=== PATIENT | female | born 1975 | race Caucasian/White ===

== ENCOUNTER → 2020-01-20 13:35 | Outpatient (CLI) | payer OTHER, SELFPAY ==
[2020-01-21 16:22] LABS: COVID19 Sendout Not Detected (Not Detect)
== END ==
PROVIDERS: PCP Family Medicine; Visit Provider Physician Assistant
DX: Z11.59 Encounter for screening for other viral diseases (principal)
CPT/HCPCS: 87635

== ENCOUNTER 2020-01-23 12:41 | Day surgery (SDC) | payer OTHER, SELFPAY ==
[2020-01-23] VITALS (7 sets, daily range): BP systolic 108–116; BP diastolic 59–71; PULSE 71–90; RESP 8–18; TEMP 36.5–36.6; O2SAT 98–100; BMI 20.9
[2020-01-23] MEDS: SODIUM CHLORIDE 0.9% 1,000 ML 200 ML IV (13:29)
--- NOTE | 2020-01-23 13:38 | PM.HP.1 ---
History of Present Illness History of Present Illness Date Patient Seen: 01/23/20 Time Patient Seen: 13:39 Chief complaint: SDC Narrative: This is a 44-year-old woman with history of 1 year rectal bleeding. She has intermittent episodes of constipation. She in the past has had fissures, although she is not having any rectal pain now. She has never had a colonoscopy. She denies any personal or family history of colon polyps or colon cancers. ROS: Positive for itching, blood in the stool, palpitations, anxiety, Thirteen system review is otherwise negative other than as mentioned below and in HPI. PE: GENERAL: Well groomed and cooperative. Appears stated age. Answers questions promptly and appropriately. Vital signs noted. HENT: Normocephalic, atraumatic. Hearing intact. EYES: Conjunctiva pink, sclera white, no periorbital swelling. CARDIOVASCULAR: Regular rate. No pedal edema. RESPIRATORY: Non-tachypneic, breathing comfortably on room air. GASTROINTESTINAL: Abdomen soft and non-distended GENITALURINARY: No flank tenderness. MUSCULOSKELETAL: Equal tone and mass bilaterally. SKIN: Warm, dry, soft, appropriate color for ethnicity. No other lesions, rashes, or wounds. NEURO: Alert and Oriented X 3. No gross sensory deficits, or cognitive issues. PSYCH: Appropriate affect and mood. Patient History Medical History (Updated 01/23/20 @ 13:19 by Alpa Moore RN) Anxiety (Acute) Arrhythmia (Acute) Constipation (Acute) Depression (Acute) History of UTI (Acute) Shortness of breath (Acute) Urinary frequency (Acute) Surgical History (Updated 01/23/20 @ 13:21 by Alpa Moore RN) History of elective Status post Mohs surgery for basal cell carcinoma (Acute) Status post myringotomy with insertion of tube Family & Social History Family History Father Age: 78 Hypertension Pacemaker Grandfather Stroke Grandmother Cancer Social History: household members spouse,children Tobacco & Substance use: Smoking Status Never smoker alcohol intake current alcohol intake frequency a few times a month Substance Use Type marijuana Meds Home Medications and Allergies Home Medications Medication Instructions Recorded Confirmed Type multivitamin [Multiple Vitamins] 1 tab PO QDAY #0 07/27/16 01/23/20 History cod liver oil 2.5 ml PO DAILY 01/23/20 01/23/20 History Allergies Allergy/AdvReac Type Severity Reaction Status Date / Time No Known Drug Allergies Allergy Unverified 12/21/19 11:06 Exam Vital Signs (past 8 hours): - 01/23/20 13:08 Temperature 97.9 F Pulse Rate 82 Respiratory Rate 14 Blood Pressure 116/71 Pulse Oximetry 100 Oxygen Delivery Method Room Air Assessment & Plan Assessment and plan (1) Rectal bleeding: Status: Acute Assessment & Plan narrative: Risks and benefits of diagnosis colonoscopy and possible polypectomy were discussed with the patient including risk of bleeding, perforation, need for additional procedures, risks of anesthesia. The patient desires to proceed with the colonoscopy procedure. COVID-19 COVID-19 status: Negative Result date/Date tested (Pos, Neg/Pending): 01/20/20 Time Spent With Patient Time with patient: 15-24 minutes Quality VTE Deep Vein Thrombosis/Pulmonary Embolism Present on Admission: No
--- NOTE | 2020-01-23 13:41 | P.OP.ENDO_ITS ---
Operative Date/Time/Diagnoses Date of procedure: 01/23/20 Time of procedure: 13:41 Pre-op diagnosis: Rectal bleeding Post-op diagnosis: other (Low-grade internal hemorrhoids, no polyps or mass) Procedure & Clinicians Study performed: Colonoscopy Procedural sedation performed by the endoscopist Indications: Rectal bleeding Surgeon: Teena Sigala Procedure Notes SCOAP/Timeout: Performed Procedure in detail: The patient was brought to the room and placed in left lateral decubitus position with all bony prominences padded. A time-out was performed and then the patient was given procedural sedation starting with 3 mg of Versed and 100 mcg of fentanyl. Total of 6 mg of Versed and 150 micro g of fentanyl were given for the entire procedure. Vitals were monitored throughout the procedure and remained stable. Once adequately sedated, the procedure was begun. A rectal exam was performed revealing no abnormalities. The colonoscope was then introduced to the rectum and advanced to the cecum in the usual fashion. The cecum was identified by the appendiceal orifice, the mucosal tri- fold, and the ileocecal valve. The scope was then retracted while rotating side to side and examining each mucosal fold. At the conclusion of the procedure retroflexion was performed and small grade 1-2 internal hemorrhoids without stigmata of bleeding were seen. The scope was then withdrawn from the rectum the procedure was concluded. The patient tolerated the procedure well and was transferred to the PACU in stable condition. Scope withdrawal time: 8 Sedation minutes: 19 Findings: internal hemorrhoids (No evidence of bleeding) Specimen(s): none sent Complications: none Impression: Likely source of bleeding is from hemorrhoids or fissure which have largely resolved. Post-procedure Recommendations: Colonscopy in 10 years Follow up: as needed Disposition: PACU
[2020-01-23] MEDS: fentaNYL 250 MCG/5 ML INJ IV (13:45)
[2020-01-23] MEDS: MIDAZOLAM 5 MG/5 ML VIAL IV (13:45)
== END 2020-01-23 14:48 | disposition home or self-care (01) ==
PROVIDERS: PCP Family Medicine; Referring Provider Surgery; Visit Provider Surgery
PROC: 0DJD8ZZ Inspection of Lower Intestinal Tract, Via Natural or Artificial Opening Endoscopic (ICD-10-PCS; CPT 45378; principal; 2020-01-23 13:45)
DX: K64.0 First degree hemorrhoids (principal); R00.2 Palpitations; F41.9 Anxiety disorder, unspecified; K59.00 Constipation, unspecified; F32.9 Major depressive disorder, single episode, unspecified
CPT/HCPCS: 45378; 99152; J2250; J3010

== ENCOUNTER → 2020-08-13 08:48 | Outpatient (CLI) | payer OTHER, SELFPAY ==
[2020-08-13] MEDS: COVID-19 VACC #1, MRNA(MOD) 100 MCG/0.5 ML VIAL IM (08:58)
== END ==
PROVIDERS: PCP Family Medicine; Visit Provider Internal Medicine
DX: Z23 Encounter for immunization (principal)
CPT/HCPCS: 0011A; 91301

== ENCOUNTER → 2020-09-11 11:01 | Outpatient (CLI) | payer OTHER, SELFPAY ==
[2020-09-11] MEDS: COVID-19 VACC #2, MRNA(MOD) 100 MCG/0.5 ML VIAL IM (11:08)
== END ==
PROVIDERS: PCP Family Medicine; Visit Provider Internal Medicine
DX: Z23 Encounter for immunization (principal)
CPT/HCPCS: 0012A; 91301

== ENCOUNTER → 2022-05-20 09:25 | Outpatient (CLI) | payer OTHER, SELFPAY ==
[2022-05-20 20:45] LABS: Appearance Urine UA CLEAR; Bilirubin Urine UA NEGATIVE (NEGATIVE); Color Urine UA YELLOW; Glucose Urine UA NEGATIVE (Negative); Ketones Urine UA NEGATIVE (NEGATIVE); Leukocyte Esterase Urine UA NEGATIVE (NEGATIVE); Nitrite Urine UA NEGATIVE (Negative); Occult Blood Urine UA TRACE-INTACT (Negative); Protein Urine UA NEGATIVE (Negative); Specific Gravity Urine UA <=1.005 (1.000-1.035); Urobilinogen Urine UA 0.2 E.U./dL (0.2)
[2022-05-20 20:50] LABS: pH Urine UA 6.5 (4.5-8.0)
[2022-05-20 20:52] LABS: Bacteria Urine Occasional (0-1); Culture Indicated Urine Cult Not Indicated; RBC Urine None Seen (0-5/HPF); WBC Urine None Seen (0-5/HPF)
== END ==
PROVIDERS: PCP Physician Assistant; Visit Provider Physician Assistant
DX: R30.0 Dysuria (principal)
CPT/HCPCS: 81001; 87086